=== PATIENT | male | born 1965 | race Hispanic/Latino ===

== ENCOUNTER 2022-06-04 08:00 | Outpatient (RCR) | payer OTHER | END 2022-06-07 | LOC: OT 08:00 | PROVIDERS: ATTEND Specialist | DX: M25.532 Pain in left wrist (principal) ==

== ENCOUNTER 2022-07-02 07:50 | Outpatient (RCR) | payer OTHER | END 2022-07-08 | LOC: OT 07:50 | PROVIDERS: ATTEND Specialist | DX: S62.142A Displaced fracture of body of hamate [unciform] bone, left wrist, initial encounter for closed fracture (principal) ==